=== PATIENT | male | born 1955 | race Caucasian/White ===

== ENCOUNTER 2017-09-09 09:04 | Outpatient (CLI) | payer OTHER ==
[2017-09-09 10:25] LABS: CREATININE 0.7 mg/dL (0.6-1.2)
== END 2017-09-09 09:05 | disposition home or self-care (01) ==
LOC: LAB 09:04
PROVIDERS: ATTEND Ophthalmology
DX: H53.461 Homonymous bilateral field defects, right side (principal)
CPT/HCPCS: 36415; 82565; 84520

== ENCOUNTER 2017-09-18 07:02 | Outpatient (CLI) | payer OTHER ==
[2017-09-18] MEDS ORDERED: GADOBUTROL 15 MMOL/15 ML VIAL ONE (07:38)
[2017-09-18] MEDS ORDERED: GADOBUTROL 15 MMOL/15 ML VIAL IVP ONE (08:22)
--- NOTE | 2017-09-18 10:03 | MRI Report ---
EXAM: MRI BRAIN AND ORBITS WITHOUT AND WITH CONTRAST EXAM DATE: 09/18/2017 08:44 AM. CLINICAL HISTORY: Homonymous bilateral visual field defects, right side. COMPARISON: None. TECHNIQUE: Multiplanar, multisequence T1-weighted and fluid-sensitive MR sequences of the brain were performed. Sequences optimized for brain and orbit evaluation. Other: None. Without and with IV Contr ast: Without and with 11 mL Gadavist. FINDINGS: Orbits: Borderline findings of symmetric exophthalmus. No intraorbital enhancing or space-occupying m ass. Unremarkable appearance of the optic nerves, no edema or enhancement. Unremarkable symmetric erendira earance of the extraocular muscles and lacrimal glands. No enhancing or space-occupying mass in the regions of the pituitary fossa, cavernous sinuses or sell a. Brain Volume: Mild generalized age-related cerebral volume loss. Parenchyma/Dura: No acute hemorrhage or stroke. No mass effect or midline shift. No enhancing or space-occupying intracranial tumor-like mass. Contrast opacification of the major dur al venous sinuses is present as expected. Strongly dominant right transverse and sigmoid sinuses. Mild chronic-appearing multifocal cerebral white matter disease, likely secondary to aging and mild c hronic microangiopathy. Ventricles/Cisterns: No hydrocephalus. Sinuses: Minimal nonspecific paranasal sinus mucosal thickening. Bones: No focal pathologic-appearing marrow signal changes in the skull or clivus. 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 IMPRESSION: 1. Borderline findings of symmetric proptosis, otherwise unremarkable-appearing orbits. 2. No acute intracranial abnormality or enhancing mass. 3. 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 [facility] Referring Provider Line: [phone] SITE ID: [id number]
== END 2017-09-18 07:03 | disposition home or self-care (01) ==
LOC: DI 07:02
PROVIDERS: ATTEND Ophthalmology
DX: H53.461 Homonymous bilateral field defects, right side (principal)
CPT/HCPCS: 70543; A9585

== ENCOUNTER 2021-12-03 08:37 | Outpatient (CLI) | payer SELFPAY | END 2021-12-03 08:38 | disposition E | LOC: EMS 08:37 ==